=== PATIENT | female | born 1930 | race Caucasian/White ===

== ENCOUNTER 2018-03-23 19:14 | Inpatient (IN) | payer MEDICARE, OTHER ==
[~2018-03-23] VITALS: Ht 157.5 cm; Wt 85.7 kg
--- NOTE | 2018-03-23 19:30 | NUR ---
ADMITTED DIRECTLY FORM [facility], AN 87 YEAR OLD WOMAN ON 5150 HOLD FOR DTS/DTO. BROUGHT IN BY PARAMEDICS VIA GURNEY, PLACED IN BED COMFORTABLY. UPON FACE TO FACE, PATIENT STATED THAT SHE WANTED TO KILL HER FAMILY MEMBERS AND HANG HERSELF. PATIENT SHOWS NO S/S OF ANY PAIN, RESPIRATION EVEN, BREATHING PATTERN NON-LABORED, NO ACUTE DISTRESS NOTED. AWAKE, ALERT, ORIENTED X2-3, FORGETFUL DUE TO POOR MEMORY,HX OF DEMENTIA. AMBULATORY, STEADY GAIT. CALM, COOPERATIVE, PLEASANT, OBEYS INSTRUCTIONS. PATIENT IS APPROPRIATE, HAS POOR JUDGEMENT AND POOR INSIGHT. SKIN ASSESSMENT DONE, SKIN IS CLEAR. BELONGINGS WERE INVENTORIED AND CHECKED FOR CONTRABAND. MED RECON DONE BY STARCHER AND TENTER RANGE FEEDER SKYE DAWSON, HAS SEEN PATIENT. PATIENT IS UNDER THE CARE OF DR. CASTELLON. MRSA SCREEN DONE. DAUGHTER SHWETA CALLED AND WAS GIVEN AN UPDATE ABOUT PATIENT'S CURRENT CONDITION, AND SHE WILL VISIT JUDITH. 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 BED LOCKED AND PLACED ON LOWEST POSITION. WILL CONTINUE TO MONITOR Q 15 MINS. TO MAINTAIN SAFETY.
[2018-03-23 20:00] VITALS: BP 165/91
[2018-03-23] MEDS ORDERED: PANT40TA4 PO (20:01)
[2018-03-23] MEDS ORDERED: DOCU100C36 PO (20:01)
[2018-03-23] MEDS ORDERED: HYDR100T27 PO (20:01)
[2018-03-23] MEDS ORDERED: TRAM50TA2 PO (20:01)
[2018-03-23] MEDS ORDERED: CLON0.2T PO (20:01)
[2018-03-23] MEDS ORDERED: VALS160T2 PO (20:01)
--- NOTE | 2018-03-23 20:19 | NUR ---
CALLED FAMILY [phone], NO ANSWER, UNABLE TO LEAVE MESSAGE. CALLED MANINDER, DAUGHTER, , NON WORKING NUMBER. FOLLOW UP JUDITH SIMON
--- NOTE | 2018-03-23 20:28 | NUR ---
DAUGHTER, SHWETA CALLED, ASKED ABOUT HER MOTHER IN ROOM 261-1. PATIENT STABLE. PER DAUGHTER SHE IS DEAF BOTH EARS.
[2018-03-23] MEDS ORDERED: MAGNESIUM HYDROXIDE 30 ML UDC PO PRN (20:30)
[2018-03-23] MEDS ORDERED: MAG HYDROX/AL HYDROX/SIMETH 30 ML UDC PO PRN (20:30)
[2018-03-23] MEDS ORDERED: ZOLPIDEM TARTRATE 5 MG TABLET PO PRN (20:30)
[2018-03-23] MEDS ORDERED: TRAMADOL HCL 50 MG TABLET PO PRN (22:00)
[2018-03-23] MEDS: DOCUSATE SODIUM 100 MG CAPSULE PO SCH (22:07)
[2018-03-23] MEDS: VALSARTAN 80 MG TABLET PO SCH (22:07)
[2018-03-23] MEDS: hydrALAZINE HCL 50 MG TABLET PO SCH (22:07)
[2018-03-24] MEDS ORDERED: DULO30CA2 PO (01:59)
[2018-03-24] MEDS ORDERED: DONE5TAB34 PO (01:59)
[2018-03-24] MEDS ORDERED: FOLI1TAB84 PO (01:59)
[2018-03-24] MEDS ORDERED: LORA0.5T PO (01:59)
[2018-03-24] MEDS ORDERED: TOLT4CAP PO (01:59)
[2018-03-24] MEDS ORDERED: BACL10TA PO (01:59)
[2018-03-24] MEDS ORDERED: LINA290C PO (01:59)
[2018-03-24] MEDS ORDERED: TIMO5SOL11 EACHEYE (01:59)
[2018-03-24] MEDS ORDERED: OLME20TA13 PO (01:59)
[2018-03-24] MEDS ORDERED: PARO20TA7 PO (01:59)
[2018-03-24] MEDS ORDERED: ROSU20TA2 PO (01:59)
[2018-03-24] MEDS: hydrALAZINE HCL 50 MG TABLET PO SCH ×3 (07:28→21:22)
[2018-03-24 08:00] VITALS: BP 146/66
[2018-03-24 08:10] LABS: BASOPHILS % (AUTO) 0.5 % (0.0-2.0); EOSINOPHILS % (AUTO) 2.6 % (0.0-6.0); HEMATOCRIT 34 % (33-45); HEMOGLOBIN 11.5 g/dL (11.5-14.8); LYMPHOCYTES # (AUTO) 2.5 /CMM (0.8-4.8); LYMPHOCYTES % (AUTO) 44.9 % (20.0-44.0); MEAN CORPUSCULAR HGB CONC 34 g/dl (31.0-36.0); MEAN CORPUSCULAR VOLUME 98 fL (82-100); MONOCYTES # (AUTO) 0.6 /CMM (0.1-1.30); MONOCYTES % (AUTO) 11.5 % (2.0-12.0); NEUTROPHILS # (AUTO) 2.3 /CMM (1.8-8.9); NEUTROPHILS % (AUTO) 40.5 % (43.0-81.0); PLATELET COUNT (AUTO) 299 /CMM (150-450); RED BLOOD CELL COUNT(AUTO) 3.42 MIL/uL (4.0-5.2); WHITE BLOOD COUNT (AUTO) 5.7 K/uL (4.3-11.0)
[2018-03-24 08:28] LABS: ALANINE AMINOTRANSFERASE 17 U/L (12-78); ALBUMIN 3.1 g/dL (3.4-5.0); ALKALINE PHOSPHATASE 60 U/L (46-116); ASPARTATE AMINOTRANSFERASE 17 U/L (15-37); BILIRUBIN,TOTAL 0.7 mg/dL (0.2-1.0); CALCIUM, SERUM 8.9 mg/dL (8.5-10.1); CARBON DIOXIDE 27 mmol/L (21-32); CHLORIDE 109 mmol/L (98-107); CREATININE 0.8 mg/dL (0.6-1.3); GLUCOSE 97 mg/dL (74-106); SODIUM SERUM 145 mmol/L (136-145); TOTAL PROTEIN, SERUM 6.6 g/dL (6.4-8.2); UREA NITROGEN, BLOOD 17 mg/dL (7-18)
[2018-03-24 08:31] LABS: CHOLESTEROL 199 mg/dL (<200); HDL CHOLESTEROL 45 mg/dL (40-60); LDL 138 mg/dL (0-99); TRIGLYCERIDES 116 mg/dL (30-150)
[2018-03-24] MEDS: DOCUSATE SODIUM 100 MG CAPSULE PO SCH ×2 (09:33→16:17)
[2018-03-24] MEDS: VALSARTAN 80 MG TABLET PO SCH ×2 (09:33→21:21)
[2018-03-24] MEDS: PANTOPRAZOLE 40 MG TABLET.DR PO SCH (09:33)
--- NOTE | 2018-03-24 11:53 | NUR ---
SW called the pt's daughter, Christina ([phone]), and left a message on her voicemail stating that the SW would like to discuss the pt's initial discharge plan.
--- NOTE | 2018-03-24 11:54 | NUR ---
PEDRO called the pt's granddaughter, Laurel ([phone]), and went over the psychosocial assessment with her and discussed the initial discharge plan as well. She stated that she will speak to her mother and discuss it further but as of right now she is the caregiver for the pt and believes that the pt will benefit from being home.
[2018-03-24] MEDS: DIVALPROEX SODIUM 250 MG TABLET.DR PO SCH ×2 (12:19→21:24)
--- NOTE | 2018-03-24 15:34 | NUR ---
Christina ([phone]), pt's daughter, called the SW back and stated that she does not think that the pt can return to her home and continue to live alone. SW went through the options with her such as shelter facility, assisted living, getting a 24/7 kitchen clerk to be present in the home, etc.
--- NOTE | 2018-03-24 15:34 | NUR ---
Initial Discharge Plan: Pt currently resides at her home alone located at [address] [place] [address]; ([phone]). Pt has a laboratory analyst, Laurel ([phone]), who is also her granddaughter. Per pt. she would like to return home. SW will work with the pt and the MD regarding appropriate discharge planning. SW will form a safe and proper discharge plan.
[2018-03-24 16:00] VITALS: BP 146/85
--- NOTE | 2018-03-24 18:56 | NUR ---
RN-CO: Called Dr Vann's office for consult, left a message.
[2018-03-24 20:00] VITALS: BP 148/89
[2018-03-24] MEDS: DONEPEZIL 5 MG TABLET PO SCH (21:22)
[2018-03-24] MEDS: QUETIAPINE FUMARATE 25 MG TABLET PO SCH (21:23)
[2018-03-25] MEDS: hydrALAZINE HCL 50 MG TABLET PO SCH ×3 (06:26→22:34)
[2018-03-25 08:00] VITALS: BP 126/75
[2018-03-25] MEDS: DOCUSATE SODIUM 100 MG CAPSULE PO SCH ×2 (09:00→17:08)
[2018-03-25] MEDS: DIVALPROEX SODIUM 250 MG TABLET.DR PO SCH ×2 (09:00→20:47)
[2018-03-25] MEDS: PANTOPRAZOLE 40 MG TABLET.DR PO SCH (09:00)
[2018-03-25] MEDS: PAROXETINE HCL 10 MG TABLET PO SCH (09:01)
[2018-03-25] MEDS: VALSARTAN 80 MG TABLET PO SCH ×2 (09:01→20:46)
[2018-03-25 16:00] VITALS: BP 142/64
[2018-03-25 18:39] LABS: APPEARANCE,URINE CLEAR (CLEAR); BILIRUBIN,URINE NEGATIVE (NEGATIVE); BLOOD, URINE NEGATIVE Ery/uL (NEGATIVE); COLOR,URINE YELLOW (YELLOW); KETONES,URINE TRACE (NEGATIVE); LEUKOCYTE ESTERASE ,URINE 1+ (NEGATIVE); NITRITE, URINE NEGATIVE (NEGATIVE); PROTEIN,URINE NEGATIVE (NEGATIVE); UGLUCOSE NEGATIVE (NEGATIVE); UROBILINOGEN,URINE 0.2 EU/dL (0.2)
[2018-03-25 19:12] LABS: BACTERIA,URINE 1+ /HPF (None Seen); RBC,URINE 0-2 /HPF (0-2)
[2018-03-25 20:00] VITALS: BP 104/71
[2018-03-25] MEDS: QUETIAPINE FUMARATE 25 MG TABLET PO SCH (22:29)
[2018-03-25] MEDS: DONEPEZIL 5 MG TABLET PO SCH (22:29)
[2018-03-26] MEDS: hydrALAZINE HCL 50 MG TABLET PO SCH ×3 (06:20→21:57)
[2018-03-26 08:00] VITALS: BP 137/72
[2018-03-26] MEDS: PAROXETINE HCL 10 MG TABLET PO SCH (08:58)
[2018-03-26] MEDS: DOCUSATE SODIUM 100 MG CAPSULE PO SCH ×2 (09:02→16:36)
[2018-03-26] MEDS: PANTOPRAZOLE 40 MG TABLET.DR PO SCH (09:02)
[2018-03-26] MEDS: DIVALPROEX SODIUM 250 MG TABLET.DR PO SCH ×2 (09:02→21:58)
[2018-03-26] MEDS: VALSARTAN 80 MG TABLET PO SCH ×2 (09:02→21:57)
[2018-03-26 16:24] VITALS: BP 125/95
[2018-03-26 19:00] VITALS: BP 142/61
[2018-03-26 20:19] VITALS: BP 142/61
[2018-03-26] MEDS: QUETIAPINE FUMARATE 25 MG TABLET PO SCH (21:57)
[2018-03-26] MEDS: DONEPEZIL 5 MG TABLET PO SCH (21:58)
--- NOTE | 2018-03-26 22:16 | NUR ---
rn notes patient noted to be anxious, and complaining of headache. ultram and ativan given with relief and help.
[2018-03-26] MEDS: LORAZEPAM 0.5 MG TABLET PO PRN (22:44)
[2018-03-27] MEDS: hydrALAZINE HCL 50 MG TABLET PO SCH ×3 (05:23→22:13)
[2018-03-27 08:00] VITALS: BP 97/53
[2018-03-27] MEDS: VALSARTAN 80 MG TABLET PO SCH ×2 (09:00→22:11)
[2018-03-27] MEDS: PANTOPRAZOLE 40 MG TABLET.DR PO SCH (09:59)
[2018-03-27] MEDS: DIVALPROEX SODIUM 250 MG TABLET.DR PO SCH ×2 (09:59→22:11)
[2018-03-27] MEDS: DOCUSATE SODIUM 100 MG CAPSULE PO SCH ×2 (10:00→17:15)
[2018-03-27] MEDS: PAROXETINE HCL 10 MG TABLET PO SCH (10:00)
--- NOTE | 2018-03-27 11:35 | NUR ---
SW called the pt's granddaughter, Laurel ([phone]), and discussed the discharge plan with her because she had stated that she would discuss it with her mother over the weekend. She stated that they are going to look into a new apartment for her and that her layer off (pt's granddaughter) will be with her. They stated that if they cannot find a [address] 8 apartment in time, then they would accept placement in a facility.
--- NOTE | 2018-03-27 13:55 | NUR ---
RN NOTE: PATIENT BP IS 91/48, 88 PULSE. PATIENT ALERT AND ORIENTED X3, THOUGHT PROCESS INTACT. WILL CONT TO MONITOR PATIENT.
[2018-03-27 16:00] VITALS: BP 119/81
[2018-03-27] MEDS: ACETAMINOPHEN 325 MG TABLET PO PRN (17:15)
[2018-03-27 20:00] VITALS: BP 132/73
[2018-03-27] MEDS: QUETIAPINE FUMARATE 25 MG TABLET PO SCH (22:12)
[2018-03-27] MEDS: DONEPEZIL 5 MG TABLET PO SCH (22:12)
--- NOTE | 2018-03-28 05:58 | NUR ---
PATIENT IS ALERT ORIENTED X 3 GIBRALTARIAN SPEAKING ONLY DENIES ANY PAIN OR DISCOMFORT AT THIS TIME, ADULT PROTECTIVE SERVICES (APS) AFTER HOURS UNIT A TIM FILE #0022 IT SENIOR SOFTWARE ENGINEER JAVA COME TO INTERVIEW THE PATIENT AND GIVE THE IT SENIOR SOFTWARE ENGINEER JAVA NUMBER OF SERGIO VIKAS, [id number] FOLLOW UP IN THE MORNING
[2018-03-28] MEDS: hydrALAZINE HCL 50 MG TABLET PO SCH ×3 (06:00→21:26)
[2018-03-28 08:00] VITALS: BP 138/63
--- NOTE | 2018-03-28 08:00 | NUR ---
RN NOTES RECEIVED PT ON BED, CITIZEN OF [place] SPEAKING , NO DISTRESS NOTED, CONTINUE TO MONITOR.
--- NOTE | 2018-03-28 08:23 | NUR ---
SW returned the call of Christina ([phone]), pt's daughter, and left a voicemail for her stating the SW's hours and that she would answer any questions she has to the best of her ability whenever she calls back with them.
[2018-03-28] MEDS: PAROXETINE HCL 10 MG TABLET PO SCH (08:57)
[2018-03-28] MEDS: DOCUSATE SODIUM 100 MG CAPSULE PO SCH ×2 (08:57→16:34)
[2018-03-28] MEDS: VALSARTAN 80 MG TABLET PO SCH ×2 (08:57→20:44)
[2018-03-28] MEDS: PANTOPRAZOLE 40 MG TABLET.DR PO SCH (08:57)
[2018-03-28] MEDS: DIVALPROEX SODIUM 250 MG TABLET.DR PO SCH ×2 (08:58→20:43)
--- NOTE | 2018-03-28 13:39 | NUR ---
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 APS Turkey Egg Gatherer stated that a different SW within this region came to see the pt and stated that the pt cannot return to her home. SW stated that the current plan is to send the pt to a assisted facility.
[2018-03-28 16:00] VITALS: BP 119/79
--- NOTE | 2018-03-28 16:23 | NUR ---
Christina ([phone]), pt's daughter, called the SW and the discharge was discussed. The SW informed her that there is an open case on the pt and an [facility] Blast Furnace Helper stated that the pt cannot return home and therefore she needs placement. The SW stated that there is a facility in [place] with many Hungarian speaking staff members that would be beneficial for the pt. She stated that she would like a referral to be sent there.
--- NOTE | 2018-03-28 16:25 | NUR ---
Lucrecia Mendes ([phone]), APS Health Communications Specialist, called the SW and stated that she would like an update regarding the pt's discharge when it is available.
--- NOTE | 2018-03-28 18:30 | NUR ---
RN NOTES PT REMANS STABLE , SITTING UP ON A CHAIR , NO SIGNIFICANT CHANGES NOTED ON THIS SHIFT.
[2018-03-28 20:50] VITALS: BP 138/71
[2018-03-28] MEDS: DONEPEZIL 5 MG TABLET PO SCH (21:26)
[2018-03-28] MEDS: QUETIAPINE FUMARATE 25 MG TABLET PO SCH (21:26)
[2018-03-29] MEDS: hydrALAZINE HCL 50 MG TABLET PO SCH ×3 (06:04→21:41)
[2018-03-29 08:00] VITALS: BP 100/54
[2018-03-29] MEDS: DOCUSATE SODIUM 100 MG CAPSULE PO SCH ×2 (08:50→17:09)
[2018-03-29] MEDS: DIVALPROEX SODIUM 250 MG TABLET.DR PO SCH ×2 (08:50→21:05)
[2018-03-29] MEDS: PAROXETINE HCL 10 MG TABLET PO SCH (08:50)
[2018-03-29] MEDS: PANTOPRAZOLE 40 MG TABLET.DR PO SCH (08:50)
[2018-03-29] MEDS: VALSARTAN 80 MG TABLET PO SCH ×2 (08:51→21:06)
--- NOTE | 2018-03-29 14:06 | NUR ---
PEDRO faxed a referral to [facility] with attention to Pippa to the fax number: [phone]. PEDRO will follow up with the referral.
--- NOTE | 2018-03-29 14:07 | NUR ---
Pippa ([phone]), community marketing coordinator from [facility], contacted the and stated that the pt was accepted to their facility.
[2018-03-29 16:00] VITALS: BP 147/78
[2018-03-29 19:57] VITALS: BP 111/60
[2018-03-29] MEDS: QUETIAPINE FUMARATE 25 MG TABLET PO SCH (21:09)
[2018-03-29] MEDS: DONEPEZIL 5 MG TABLET PO SCH (21:09)
[2018-03-30] MEDS: hydrALAZINE HCL 50 MG TABLET PO SCH ×3 (05:46→20:54)
[2018-03-30 08:00] VITALS: BP 101/56
[2018-03-30] MEDS: VALSARTAN 80 MG TABLET PO SCH ×2 (08:11→20:54)
[2018-03-30] MEDS: PAROXETINE HCL 10 MG TABLET PO SCH (08:11)
[2018-03-30] MEDS: DIVALPROEX SODIUM 250 MG TABLET.DR PO SCH ×2 (08:11→20:54)
[2018-03-30] MEDS: PANTOPRAZOLE 40 MG TABLET.DR PO SCH (08:11)
[2018-03-30] MEDS: DOCUSATE SODIUM 100 MG CAPSULE PO SCH ×2 (08:11→16:50)
--- NOTE | 2018-03-30 12:07 | NUR ---
PEDRO called Christina ([phone]), pt's daughter, and informed her that the pt was accepted to [facility] and that the psychiatrist would like the pt to be discharged on Tuesday. PEDRO informed her to call back to state whether or not this is an acceptable discharge plan.
--- NOTE | 2018-03-30 13:46 | NUR ---
SW called the pt's granddaughter, Laurel ([phone]), and informed her that the pt was accepted to [facility] and that is the recommended discharge plan. PEDRO stated that the psychiatrist will be discharging the pt on Tuesday so the SW needs a discharge confirmation location by tomorrow.
[2018-03-30 16:00] VITALS: BP 123/71
--- NOTE | 2018-03-30 16:08 | NUR ---
Christina ([phone]), pt's daughter, called the and stated that she accepts the discharge plan of having the pt be discharged to [facility].
[2018-03-30 20:00] VITALS: BP 129/59
[2018-03-30] MEDS: DONEPEZIL 5 MG TABLET PO SCH (20:56)
[2018-03-30] MEDS: QUETIAPINE FUMARATE 25 MG TABLET PO SCH (20:56)
[2018-03-31] MEDS: hydrALAZINE HCL 50 MG TABLET PO SCH ×3 (06:14→21:42)
--- NOTE | 2018-03-31 06:15 | NUR ---
VITALS NOW 120/64, PULSE 60.
[2018-03-31 06:16] VITALS: BP 120/64
[2018-03-31 08:00] VITALS: BP 146/68
[2018-03-31] MEDS: PAROXETINE HCL 10 MG TABLET PO SCH (08:51)
[2018-03-31] MEDS: DOCUSATE SODIUM 100 MG CAPSULE PO SCH ×2 (08:51→16:40)
[2018-03-31] MEDS: DIVALPROEX SODIUM 250 MG TABLET.DR PO SCH ×2 (08:51→21:42)
[2018-03-31] MEDS: VALSARTAN 80 MG TABLET PO SCH ×2 (08:51→21:43)
[2018-03-31] MEDS: PANTOPRAZOLE 40 MG TABLET.DR PO SCH (08:51)
[2018-03-31] MEDS: ACETAMINOPHEN 325 MG TABLET PO PRN (08:57)
--- NOTE | 2018-03-31 09:00 | NUR ---
GPS/RN-NOTES PATIENT REQUESTING TYLENOL FOR HEADACHE. TYLENOL 650MG P.O GIVEN PRN ORDER. ALSO PATIENT C/O OF CONSTIPATION. MOM 30ML GIVEN PRN ORDER. WILL CONT. MONITORING.
--- NOTE | 2018-03-31 11:10 | NUR ---
PEDRO called the pt's granddaughter, Laurel ([phone]), and attempted to leave a voicemail confirming the pt's discharge but the mailbox was full.
--- NOTE | 2018-03-31 11:21 | NUR ---
SW received a call from [facility] ([phone]) and confirmed that the pt will be discharging there the following day at 12pm.
--- NOTE | 2018-03-31 11:43 | NUR ---
PEDRO called Lucrecia Mendes ([phone]), APS Coupon Manifest Clerk, and left a message on her voicemail stating that the pt will be discharged tomorrow and will be going to [facility] instead of returning home.
[2018-03-31 16:00] VITALS: BP 125/63
[2018-03-31 20:00] VITALS: BP 124/60
[2018-03-31] MEDS: QUETIAPINE FUMARATE 25 MG TABLET PO SCH (21:42)
[2018-03-31] MEDS: DONEPEZIL 5 MG TABLET PO SCH (21:42)
[2018-03-31] MEDS: LORAZEPAM 0.5 MG TABLET PO PRN (23:05)
[2018-04-01] MEDS: hydrALAZINE HCL 50 MG TABLET PO SCH (06:00)
[2018-04-01 08:00] VITALS: BP 102/59
[2018-04-01 08:15] VITALS: BP 102/59
[2018-04-01] MEDS: DOCUSATE SODIUM 100 MG CAPSULE PO SCH (08:15)
[2018-04-01] MEDS: PAROXETINE HCL 10 MG TABLET PO SCH (08:15)
[2018-04-01] MEDS: PANTOPRAZOLE 40 MG TABLET.DR PO SCH (08:15)
[2018-04-01] MEDS: DIVALPROEX SODIUM 250 MG TABLET.DR PO SCH (08:15)
[2018-04-01] MEDS: VALSARTAN 80 MG TABLET PO SCH (08:15)
--- NOTE | 2018-04-01 09:24 | NUR ---
DR. CASTELLON GAVE AN ORDER TO D/C HOLD AND D/C TO [facility], TO CONTINUE SAME MEDS INCLUDING PRN AND TO FOLLOW UP WITH PSYCH AND MEDICAL DOCTORS.
--- NOTE | 2018-04-01 09:31 | NUR ---
SPOKE TO PRISCA MANAGER CONSTRUCTION OF [facility] AND SAID THEY WILL ACCEPT HER TODAY AND DAUGHTER SHWETA MADE AWARE OF THE DISCHARGE WITH THE TELEPHONE # [phone].
--- NOTE | 2018-04-01 13:17 | NUR ---
GPS PRECINCT POLICE LIEUTENANT NOTE: PT DISCHARGE TO [facility] AT [address] [address] [address] T.O[address] ORDER FROM DR RAVINDER RAMIREZ HOLD DC TP TO SNF, ORDER PLACED. PT IN STABLE CONDITION NO S/S DISTRESS NOTED , PT DENIES SI/HI, COMPLIANT WITH MEDICATIONS, VSS, SKIN INTACT.EXIT CARE DONE, PRINTED GIVEN TO PT. PT AMBULATORY A/OX2,FILIPINO SPEAKER. ALL BELONGINGS RETURNED TO PT. PT DAUGHTER NOTIFIED OF DISCHARGE.
--- NOTE | 2018-04-03 16:29 | NUR ---
Discharge Note: Pt was discharged to [facility] ([facility]) located at [address] [place] [address]; ([phone]). Pt was transported via [facility] (Trip #[id number]) at 12pm. Pts daughter, Christina ([phone]), was notified of this discharge. Upon discharge, the pt had informed the nurses that the pt denied both suicidal and homicidal ideation as well as auditory and visual hallucinations. Pt will be under the care of her psychiatrist, Dr. Scruggs, located at [address] [address], [place] [address]; and her castables worker, Dr. Roldan, located at [address], [place] [address]; .
== END 2018-04-01 13:48 | DRG 885 ==
LOC: GPS 19:14
PROVIDERS: ADMIT Psychiatry & Neurology Psychiatry; ATTEND Psychiatry & Neurology Psychiatry
DX: F31.2 Bipolar disorder, current episode manic severe with psychotic features (principal); E44.1 Mild protein-calorie malnutrition; D68.59 Other primary thrombophilia; F03.91 Unspecified dementia, unspecified severity, with behavioral disturbance; F29 Unspecified psychosis not due to a substance or known physiological condition; E66.01 Morbid (severe) obesity due to excess calories; F03.90 Unspecified dementia, unspecified severity, without behavioral disturbance, psychotic disturbance, mood disturbance, and anxiety; K21.9 Gastro-esophageal reflux disease without esophagitis; I10 Essential (primary) hypertension; E87.6 Hypokalemia; Z79.899 Other long term (current) drug therapy; E88.09 Other disorders of plasma-protein metabolism, not elsewhere classified; Z68.34 Body mass index [BMI] 34.0-34.9, adult
CPT/HCPCS: 36415; 70450-TC; 71045-TC; 80053-TC; 80061-TC; 80164-TC; 80305; 81000-TC; 84443-TC; 85025-TC; 87081-TC; 87086-TC

== ENCOUNTER 2018-11-09 11:45 | Inpatient (IN) | payer MEDICARE, OTHER ==
[~2018-11-09] VITALS: Ht 162.6 cm; Wt 59.0 kg
--- NOTE | 2018-11-09 07:30 | NUR ---
MEHNAZ RN OPENING NOTE RECEIVED PATIENT A/O X1. PATIENT IS IN NO SIGN OF ANY DISTRESS. PATIENT IS ON ROOM AIR WITH NO SOB. PATIENT HAS A RAC #18g WITH NS RUNNING AT 75LM/HR PATENT AND FLUSHING WELL, SHE ALSO HAS A LAC SALINE LOCK #18G PATENT AT FLUSHING WELL. PATIENT IS ABLE TO FOLLOW SMALL COMMANDS. SKIN IN INTACT AND IS ABLE TO MOVE AND CONTROL EXTREMITIES. PATIENT HAS RIVERA PATENT WITH SIGNS OF HEMATURIA BUT SIGNS OF DISTRESS. PATIENT SHOWS SLIGHT CONFUSION WILL CONTINUE TO MONITOR PATIENT Addendum: 11/10/18 at 0651 by BURKE WAGNER RN TIME OF NOTE INCORRECT. TIME IS FOR 19:30
[~2018-11-09 11:45] MED LIST: BACL10TA PO; CLON0.2T PO; DOCU100C36 PO; DONE5TAB34 PO; DULO30CA2 PO; FOLI1TAB84 PO; HYDR100T27 PO; LINA290C PO; OLME20TA13 PO; PANT40TA4 PO; ROSU20TA2 PO; TIMO5SOL11 EACHEYE; TOLT4CAP PO; TRAM50TA2 PO; VALS160T2 PO
--- NOTE | 2018-11-09 12:04 | NUR ---
DR RAMIREZ AT BEDSIDE, CODE STROKE ACTIVATED AT 1201. NIHSS COMPLETED = 26. FAILED SWALLOW EVAL D/T ALOC.
--- NOTE | 2018-11-09 12:09 | NUR ---
CALLED TELE STROKE HOTLINE
[2018-11-09 12:18] LABS: BASOPHILS # (AUTO) 0.1 /CMM (0.0-0.2); BASOPHILS % (AUTO) 0.9 % (0.0-2.0); EOSINOPHILS % (AUTO) 0.9 % (0.0-6.0); HEMATOCRIT 34 % (33-45); HEMOGLOBIN 11.3 g/dL (11.5-14.8); LYMPHOCYTES # (AUTO) 3.4 /CMM (0.8-4.8); LYMPHOCYTES % (AUTO) 48.3 % (20.0-44.0); MEAN CORPUSCULAR HGB CONC 33 g/dl (31.0-36.0); MEAN CORPUSCULAR VOLUME 101 fL (82-100); MONOCYTES # (AUTO) 0.7 /CMM (0.1-1.30); MONOCYTES % (AUTO) 9.6 % (2.0-12.0); NEUTROPHILS # (AUTO) 2.8 /CMM (1.8-8.9); NEUTROPHILS % (AUTO) 40.3 % (43.0-81.0); PLATELET COUNT (AUTO) 261 /CMM (150-450); RED BLOOD CELL COUNT(AUTO) 3.35 MIL/uL (4.0-5.2)
--- NOTE | 2018-11-09 12:20 | NUR ---
1219: RADIOLOGIST SPEAKING TO DR RAMIREZ
[2018-11-09 12:23] LABS: CARBON DIOXIDE 26 mmol/L (21-32); CHLORIDE 105 mmol/L (98-107); POTASSIUM 3.5 mmol/L (3.5-5.1); SODIUM SERUM 139 mmol/L (136-145)
[2018-11-09 12:25] LABS: CALCIUM, SERUM 8.3 mg/dL (8.5-10.1); GLUCOSE 105 mg/dL (74-106); UREA NITROGEN, BLOOD 14 mg/dL (7-18)
[2018-11-09 12:30] LABS: ALANINE AMINOTRANSFERASE 11 U/L (12-78); ALBUMIN 3.2 g/dL (3.4-5.0); ALKALINE PHOSPHATASE 49 U/L (46-116); ASPARTATE AMINOTRANSFERASE 14 U/L (15-37); BILIRUBIN,DIRECT 0.1 mg/dL (0.0-0.2); BILIRUBIN,TOTAL 0.4 mg/dL (0.2-1.0); TOTAL PROTEIN, SERUM 6.7 g/dL (6.4-8.2)
--- NOTE | 2018-11-09 12:34 | NUR ---
TALKED TO SHWETA PT DAUGHTER [phone]
[2018-11-09] MEDS ORDERED: ZOLP5TAB8 PO (12:41)
[2018-11-09] MEDS ORDERED: LANS30CA54 PO (12:41)
[2018-11-09] MEDS ORDERED: METO-356 PO (12:41)
[2018-11-09] MEDS ORDERED: MOME17SP (12:41)
[2018-11-09] MEDS ORDERED: TOLT4CAP PO (12:41)
[2018-11-09] MEDS ORDERED: AMLO10TA4 PO (12:41)
[2018-11-09] MEDS ORDERED: HYDR-500 PO (12:41)
[2018-11-09 12:42] LABS: CHOLESTEROL 210 mg/dL (<200); HDL CHOLESTEROL 34 mg/dL (40-60); LDL 136 mg/dL (0-99); TRIGLYCERIDES 159 mg/dL (30-150)
--- NOTE | 2018-11-09 12:55 | NUR ---
CALLED FOR MEHNAZ BED, TURNED IN MOVE SHEET
--- NOTE | 2018-11-09 13:15 | NUR ---
PAGED LIVAN MERCHANT
--- NOTE | 2018-11-09 13:22 | NUR ---
MEHNAZ BED 112-1
[2018-11-09 13:41] LABS: ABG BASE EXCESS -2.7 mmol/L; ABG OXYGEN SATURATION 96.5 % (92.0-98.5); ABG PCO2 37.9 mmHg (35.0-45.0); ABG PH 7.381 (7.350-7.450); ABG PO2 89.8 mmHg (75.0-100.0); AaDO2 14.5 mmHg; COHb 0.5 % (0.5-1.5); MetHb 0.3 % (0.0-1.5); O2Hb 95.7 % (94.0-97.0); SITE, ABG Left Radial; VENT MODE, BG ROOM AIR
--- NOTE | 2018-11-09 13:41 | NUR ---
REPORT GIVEN TO CHASITY JACOBO
[2018-11-09] MEDS ORDERED: ASPIRIN 300 MG/SUPP.RECT RC ONE (13:44)
[2018-11-09 13:57] LABS: APPEARANCE,URINE Clear (CLEAR); BILIRUBIN,URINE Negative (NEGATIVE); BLOOD, URINE Negative Ery/uL (NEGATIVE); COLOR,URINE Yellow (YELLOW); KETONES,URINE Negative (NEGATIVE); LEUKOCYTE ESTERASE ,URINE Negative (NEGATIVE); NITRITE, URINE Negative (NEGATIVE); PROTEIN,URINE Negative (NEGATIVE); UGLUCOSE Negative (NEGATIVE); UROBILINOGEN,URINE 0.2 EU/dL (0.2)
[2018-11-09 14:00] VITALS: BP 95/72
[2018-11-09] MEDS ORDERED: ASPIRIN 300 MG/SUPP.RECT RC SCH (14:00)
--- NOTE | 2018-11-09 14:00 | NUR ---
received pt from ER, s/p AMS, pt is alters, non verbal, opens eyes but does not follow commands, SB, RA sat well, BL foot non pitting edema, NPO, f/c some good output, no BM, skin intact, pt cleaned, changed and repositioned, v/s stable, no pain, Dr. Roy at the bedside,
--- NOTE | 2018-11-09 14:02 | NUR ---
TRANSPORTED TO [facility] RM 111-2 IN GUARDED CONDITION
[2018-11-09] MEDS ORDERED: Z GUARD REMEDY 2 OZ OINT TP PRN (14:30)
[2018-11-09] MEDS ORDERED: ONDANSETRON HCL/PF 4 MG/2 ML VIAL IVP PRN (14:30)
[2018-11-09] MEDS: IV NS 0.9% 1,000 ML IV PRN (15:19)
[2018-11-09 16:00] VITALS: BP 125/55
--- NOTE | 2018-11-09 16:18 | NUR ---
pt is resting in the bed, drowsy, opens eyes, does not follow commands, v/s stable, no pain, pt cleaned, changed and repositioned.
[2018-11-09] MEDS ORDERED: MOMETASONE FUROATE NASAL SUSP 17 GM BOTTLE SCH (17:00)
[2018-11-09 20:00] VITALS: BP 148/69
[2018-11-09 20:20] VITALS: BP 148/69
[2018-11-09] MEDS: ENOXAPARIN SODIUM 40 MG/0.4 ML DISP.SYRIN SQ SCH (20:53)
[2018-11-10] VITALS: BP 159/74
[2018-11-10] MEDS: hydrALAZINE HCL IV 20 MG VIAL IV PRN ×2 (03:33→20:22)
[2018-11-10 04:00] VITALS: BP_SYST 161; BP_SYST 177; BP_DIAS 73; BP_DIAS 74
[2018-11-10] MEDS: IV NS 0.9% 1,000 ML IV PRN ×2 (04:47→20:36)
[2018-11-10 06:45] LABS: BASOPHILS % (AUTO) 0.8 % (0.0-2.0); EOSINOPHILS % (AUTO) 1.1 % (0.0-6.0); HEMATOCRIT 39 % (33-45); HEMOGLOBIN 12.8 g/dL (11.5-14.8); LYMPHOCYTES # (AUTO) 2.4 /CMM (0.8-4.8); MEAN CORPUSCULAR HGB CONC 33 g/dl (31.0-36.0); MEAN CORPUSCULAR VOLUME 101 fL (82-100); MONOCYTES # (AUTO) 0.7 /CMM (0.1-1.30); MONOCYTES % (AUTO) 9.9 % (2.0-12.0); NEUTROPHILS # (AUTO) 3.4 /CMM (1.8-8.9); NEUTROPHILS % (AUTO) 52.2 % (43.0-81.0); PLATELET COUNT (AUTO) 247 /CMM (150-450); RED BLOOD CELL COUNT(AUTO) 3.84 MIL/uL (4.0-5.2); WHITE BLOOD COUNT (AUTO) 6.6 K/uL (4.3-11.0)
[2018-11-10 07:07] LABS: ALBUMIN 3.1 g/dL (3.4-5.0); BILIRUBIN,TOTAL 0.6 mg/dL (0.2-1.0); CALCIUM, SERUM 8.3 mg/dL (8.5-10.1); CREATININE 0.7 mg/dL (0.6-1.3); MAGNESIUM 1.7 mg/dL (1.8-2.4); PHOSPHORUS 3.7 mg/dL (2.5-4.9); POTASSIUM 3.5 mmol/L (3.5-5.1); TOTAL PROTEIN, SERUM 6.8 g/dL (6.4-8.2)
--- NOTE | 2018-11-10 07:28 | NUR ---
OILER BANDER OPENING NOTE PATIENT IN BED STABLE AND RESTING A/O X1. PATIENT HAS NO SIGNS OF SOB OR ANY DISTRESS. ALL SAFETY PRECAUTIONS ARE APPLIED. ENDORSED PATIENT TO AM NURSE.
--- NOTE | 2018-11-10 07:30 | NUR ---
MEHNAZ/RN OPENING NOTES PATIENT IN BED SLEEPING COMFORTABLY. EASILY AROUSABLE. GHANAIAN SPEAKING. PATIENT ABLE TO MAKE NEEDS KNOWN. NO PAIN OR ACUTE DISTRESS AT THIS TIME. RESPIRATION EVEN AND UNLABORED. SKIN IS DRY WARM TO TOUCH. PATIENT NOTED WITH IV ACCESS ON LEFT AND RIGHT AC. INTACT AND PATENT. FLUSHING WELL. NO S/S OF INFECTION OR INFILTRATION. ALL NEEDS ANTICIPATED. CALL LIGHT WITHIN REACHED. BED LOCKED AND IN LOWEST POSITION. SAFETY MAINTAINED. PLAN OF CARE DISCUSSED. WILL CONTINUE TO MONITOR CLOSELY.
[2018-11-10 07:53] LABS: THYROID STIMULATING HORMONE 1.005 uIU/mL (0.358-3.74)
[2018-11-10 08:00] VITALS: BP 171/69
[2018-11-10] MEDS: DULOXETINE HCL 30 MG CAPSULE.DR PO SCH (08:20)
[2018-11-10] MEDS: FLUTICASONE PROPIONATE 16 GM BOTTLE NS SCH (08:20)
[2018-11-10] MEDS: DONEPEZIL 5 MG TABLET PO SCH (08:20)
[2018-11-10] MEDS: TOLTERODINE 2 MG CAP.SR PO SCH (08:22)
[2018-11-10] MEDS: METOPROLOL SUCCINATE 25 MG TAB.SR.24H PO SCH (08:22)
[2018-11-10] MEDS: AMLODIPINE BESYLATE 10 MG TABLET PO SCH (08:22)
[2018-11-10] MEDS: Magnesium 1GM/D5W 100ML PREMIX 100 ML IV SCH ×2 (10:00→11:52)
[2018-11-10] MEDS: ACETAMINOPHEN 325 MG TABLET PO PRN ×2 (10:07→20:21)
[2018-11-10 16:00] VITALS: BP_SYST 108; BP_SYST 111; BP_DIAS 64; BP_DIAS 65
--- NOTE | 2018-11-10 17:53 | NUR ---
MS/RN NOTES PAGED DR. MERCHANT THRU EPIC LINE. AWAITING FOR CALL BACK REGARDING PATIENT BEING CONSTIPATED. ACCORDING TO PATIENT SHE HAS NOT HAVE A BOWEL MOVEMENT IN 3-4 DAYS. PATIENT CONTINUES TO REMAIN IN STABLE CONDITION. WILL CONTINUE TO MONITOR CLOSELY.
--- NOTE | 2018-11-10 19:15 | NUR ---
RN NOTES: RECEIVED AWAKE ON BED, DAUGHTER PRESENT AT BED SIDE, A/OX1-2, ALBANIAN SPEAKING, ABLE TO SAY FEW CZECH WORDS, DAUGHTER WAS CONCERN REGARDING PATIENT UNABLE TO PASS STOOL, PER RN THEY ARE AWAITING FOR RETURN CALL FROM .WILL F/U. ORIENTED TO UNIT AND STAFF, BED LOW AND LOCKED, CALL LIGHT WITHIN EASY REACH, FALL,SAFETY AND ASPIRATION PRECAUTION OBSERVED.
--- NOTE | 2018-11-10 19:23 | NUR ---
MS/RN CLOSING NOTES PATIENT CONTINUES TO REMAIN IN STABLE CONDITION THROUGHOUT THE SHIFT. PROVIDED COMFORT AND SAFETY. ENDORSED TO PM SHIFT REGARDING PATIENT FEELING CONSTIPATED. STILL WAITING FOR DR. MERCHANT'S CALL BACK AFTER BEING PAGED. PATIENT NOTED WITH IV ACCESS ON LEFT AND RIGHT AC. INTACT AND PATENT. FLUSHING WELL. NO S/S OF INFECTION OR INFILTRATION. ALL NEEDS ANTICIPATED. CALL LIGHT WITHIN REACHED. BED LOCKED AND IN LOWEST POSITION. SAFETY MAINTAINED. WILL CONTINUE TO MONITOR CLOSELY. ENDORSED TO PM SHIFT FOR SUSY.
[2018-11-10 20:00] VITALS: BP 161/76
--- NOTE | 2018-11-10 20:00 | NUR ---
RN NOTES 1999 DAUGHTER AT BEDSIDE WITH CONCERNS ABOUT CONSTIPATION; BLOOD PRESSURE; IV SITE; HEADACHE. MD WAS PAGED ENDORSED BUT PAGED AGAIN AT THIS TIME; AWAITING FOR CALL BACK FOR MD SOFTWARE PROJECT ENGINEER. OFFERED PRUNE JUICE FOR NOW WHILE WAITING FOR CALL BACK; AGREED TO TAKE WARM PRUNE JUICE; EXPLAINED TO DAUGHTER THAT PRN BP MED IS FOR ABOVE 170 SBP BUT WILL ADDRESS THAT WHEN MD CALLS BACK. PRIMARY RN, PERCY WILL CHANGE IV SITE DRESSING AND WILL ADDRESS HEADACHE; ICE PACK GIVEN PER REQUEST.
[2018-11-10] MEDS ORDERED: BISACODYL SUPP (10 MG) 10 MG/SUPP.RECT SUPP.RECT RC PRN (20:30)
--- NOTE | 2018-11-10 20:39 | NUR ---
RN NOTES: AROUND 2019 CALLED BACK, NOTIFIED PATIENT IS CONSTIPATED, WE REQUEST FOR LAXATIVE AND NOTIFIED PATIENT IS HAVING HEACHACHE BP-161/76, SHE IS ON APRSOLINE PRN FOR SBP.170, WTH NEW ORDERS: 1)MOM 30 ML q8h PRN FOR CONSTIPATION 2)DULCOLAX SUPP 10 MG q DAILY PRN IF ORAL LAXATIVE IS INEFFECTIVE 3)PARAMETER FOR APRESOLINE CHANGE FROM SBP>170 TO SBP.160 - ALL ORDERS NOTED AND CARRIED OUT. - AT 2020 TYLENOL 650MG PRN FOR PAIN GIVEN AND NON PHARMACOLOGIC INTERVENTION RENDERED. - BP161/76 APRESOLINE 10MG/0.5ML GIVEN WHILE DAUGHTER IS PRESENT AT BEDSIDE - ICE PACK APPLIED IN THE HEAD TO LESSEN THE HEADACHE, ALSO PRUNE JUICE GIVEN. -DAUGHTER LEFT AT 2029 AND EXPRESS HER APPRECIATION FOR F/U HER REQUEST.KEPT ON CLOSE WATCH, BED LOW AND CLOCKED ,CALL LIGHT WITHIN EASY REACH.
--- NOTE | 2018-11-10 20:50 | NUR ---
RN NOTES: -IV LINE TRANSPARENT DRESSING CHANGE , CONTINUE ON ICE PACK FOR HEADACHE, PRN TYLENOL GIVEN AT 2020 Addendum: 11/11/18 at 6 by PERCY MATA RN ADDITIONAL NOTES: AT 2100 BP CHECKED-142/76, SHE LOOKS MORE RELAX NOW.
[2018-11-10] MEDS: MAGNESIUM HYDROXIDE 30 ML UDC PO PRN (21:34)
[2018-11-10] MEDS: ENOXAPARIN SODIUM 40 MG/0.4 ML DISP.SYRIN SQ SCH (21:34)
--- NOTE | 2018-11-11 03:06 | NUR ---
RN NOTES: -NO COMPLAINTS OF HEADACHE, ASLEEP AT SHORT INTERVALS.CONTINUE ON CLOSE WATCH.CALL LIGHT WITHIN EASY REACH.
[2018-11-11 04:00] VITALS: BP 152/78
--- NOTE | 2018-11-11 05:00 | NUR ---
RN NOTES: AT 0400 FOUND PATIENT PULLED OUT HER IV CANNULA ON THE RAC. IV CANNULA ON THE LAC STILL PATENT AND WORKING, IVF CONTINUE ON THE LAC NS AT 75ML/HR ONGOING VIA INFUSION PUMP. INSTRUCT NOT TO PULL OUT HER IV CANULA.
--- NOTE | 2018-11-11 06:58 | NUR ---
RN NOTES: TAKING A SHORT NAP IN BETWEEN, AWAKE MOST OF THE TIME, CALLS AND NEEDS ATTENDED, FALL,SAFETY AND ASPIRATION PRECAUTION OBSERVED, CALL LIGHT WITHIN EASY REACH, ENDORSED FOR CONTINUITY OF CARE.
[2018-11-11 07:26] LABS: CALCIUM, SERUM 8.9 mg/dL (8.5-10.1); CREATININE 0.7 mg/dL (0.6-1.3); MAGNESIUM 2.3 mg/dL (1.8-2.4); POTASSIUM 3.8 mmol/L (3.5-5.1)
--- NOTE | 2018-11-11 07:30 | NUR ---
MS/RN OPENING NOTES PATIENT IN BED RESTING COMFORTABLY. EASILY AROUSABLE. ABLE TO MAKE NEEDS KNOWN. PATIENT IS MOSTLY CITIZEN OF [place] SPEAKING. NO PAIN OR ACUTE DISTRESS AT THIS TIME. RESPIRATION EVEN AND UNLABORED. SKIN IS DRY WARM TO TOUCH. F/C INTACT AND PATENT. DRAINING YELLOW URINE. PATIENT CONTINUES TO TOLERATE IVF WELL. ALL NEEDS ANTICIPATED. CALL LIGHT WITHIN REACHED. BED LOCKED AND IN LOWEST POSITION. SAFETY MAINTAINED. PLAN OF CARE DISCUSSED. WILL CONTINUE TO MONITOR CLOSELY.
[2018-11-11 08:00] VITALS: BP 146/63
[2018-11-11] MEDS: FLUTICASONE PROPIONATE 16 GM BOTTLE NS SCH (08:45)
[2018-11-11] MEDS: DULOXETINE HCL 30 MG CAPSULE.DR PO SCH (08:46)
[2018-11-11] MEDS: AMLODIPINE BESYLATE 10 MG TABLET PO SCH (08:46)
[2018-11-11] MEDS: MAGNESIUM HYDROXIDE 30 ML UDC PO PRN (08:46)
[2018-11-11] MEDS: DONEPEZIL 5 MG TABLET PO SCH (08:46)
[2018-11-11] MEDS: TOLTERODINE 2 MG CAP.SR PO SCH (08:46)
[2018-11-11] MEDS: METOPROLOL SUCCINATE 25 MG TAB.SR.24H PO SCH (08:47)
[2018-11-11] MEDS ORDERED: NA PHOS,M-B/NA PHOS,DI-BA 1 EA ENEMA RC PRN (11:00)
[2018-11-11] MEDS ORDERED: MAGNESIUM CITRATE 296 ML BOTTLE PO ONE (11:00)
[2018-11-11 16:00] VITALS: BP 149/67
[2018-11-11] MEDS: IV NS 0.9% 1,000 ML IV PRN (16:35)
--- NOTE | 2018-11-11 19:13 | NUR ---
MS/RN CLOSING NOTES PATIENT CONTINUES TO REMAIN IN STABLE CONDITION THROUGHOUT THE SHIFT. PROVIDED COMFORT AND SAFETY. PATIENT WAS ABLE TO HAVE 2 BIG BOWEL MOVEMENT DURING THE SHIFT. F/C INTACT AND PATENT. DRAINING SLIGHTLY PINKISH URINE DUE TO PATIENT TUGGING ON THE F/C. INFORMED DR. MERCHANT. HE ORDERED URINALYSIS. URINE COLLECTED AND WAS PLACED IN THE SPECIMEN FRIDGE. PATIENT CONTINUES TO TOLERATE IVF WELL. ALL NEEDS ANTICIPATED. CALL LIGHT WITHIN REACHED. BED LOCKED AND IN LOWEST POSITION. SAFETY MAINTAINED. PLAN OF CARE DISCUSSED. WILL CONTINUE TO MONITOR CLOSELY. ENDORSED TO PM NURSE FOR SUSY.
[2018-11-11 20:00] VITALS: BP_SYST 119; BP_SYST 149; BP_DIAS 67; BP_DIAS 77
[2018-11-11] MEDS: ENOXAPARIN SODIUM 40 MG/0.4 ML DISP.SYRIN SQ SCH (21:09)
[2018-11-12] VITALS (8 sets, daily range): BP systolic 124–142; BP diastolic 64–87
--- NOTE | 2018-11-12 07:28 | NUR ---
RN OPENING NOTES RECEIVED PATIENT AWAKE AND RESTING IN BED COMFORTABLY. SHE IS AO X2, VERBAL (YORUBA SPEAKING), AND AMBULATORY WITH ASSIST. SHE HAS A FC, INTACT, PATENT, SLIGHT BLOOD TINGED (MD AWARE). SHE IS ON RA, TOLERATING WELL, SHOWS NO S/SX OF RESP DISTRESS OR SOB. SHE IS ON A SOFT DIET, TOLERATING WELL. SKIN IS INTACT. L HAND 22 G INFUSING NS AT 75 ML/HR. NO AM LABS ORDERED FOR TODAY. SAFETY MEASURES HAVE BEEN IMPLEMENTED, CALL LIGHT IS WITHIN REACH, BED IS IN LOWEST AND LOCKED POSITION, SIDE RAILS UP X2, WILL CONTINUE TO MONITOR FOR ANY CHANGES.
--- NOTE | 2018-11-12 08:00 | NUR ---
PT IS CONFUSED AND WANTS TO GET OUT OF BED. MOVED HER TO 117-2 TO BE CLOSER TO THE NURSES STATION, WILL CONTINUE TO MONITOR
[2018-11-12] MEDS: DULOXETINE HCL 30 MG CAPSULE.DR PO SCH (08:31)
[2018-11-12] MEDS: TOLTERODINE 2 MG CAP.SR PO SCH (08:31)
[2018-11-12] MEDS: DONEPEZIL 5 MG TABLET PO SCH (08:31)
[2018-11-12] MEDS: METOPROLOL SUCCINATE 25 MG TAB.SR.24H PO SCH (08:32)
[2018-11-12] MEDS: AMLODIPINE BESYLATE 10 MG TABLET PO SCH (08:32)
[2018-11-12] MEDS: FLUTICASONE PROPIONATE 16 GM BOTTLE NS SCH (08:38)
--- NOTE | 2018-11-12 19:07 | NUR ---
RN CLOSING NOTES PATIENT IS RESTING IN BED COMFORTABLY, DENIES ANY PAIN OR DISCOMFORT. PT NEEDS HAVE BEEN MET. NO ACUTE CHANGES OCCURRED THROUGHOUT THE SHIFT. VITAL SIGNS ARE STABLE. SHE IS ON RA, NO SIGNS OF SOB. SKIN IS INTACT. SAFETY MEASURES HAVE BEEN IMPLEMENTED, CALL LIGHT IS WITHIN REACH, BED IS IN LOWEST AND LOCKED POSITION, SIDE RAILS UP X2, PT HAS BEEN ENDORSED TO NIGHTSHIFT RN FOR CONTINUITY OF CARE
--- NOTE | 2018-11-12 20:21 | NUR ---
rn initial notes: received report from aminata heard. pt transferred from imelda, was brought to the unit via bed. pt a/o x2 kosovan speaking only. pt has iv access on left hand , patent and flushing well, infusing with ns at 75ml/hr. pt received with shipley catheter draining with bloody urine. ble kept offloaded on pillows. inventory of belongings completed by roxy shelby. safety precautions for fall initiated, call light in reach. will continue monitoring pt.
[2018-11-12] MEDS: ENOXAPARIN SODIUM 40 MG/0.4 ML DISP.SYRIN SQ SCH (22:00)
--- NOTE | 2018-11-12 22:30 | NUR ---
rn notes: report given to wendy heard for continuity of care.
[2018-11-13] MEDS: ACETAMINOPHEN 325 MG TABLET PO PRN (04:31)
--- NOTE | 2018-11-13 05:22 | NUR ---
RN NOTES: PT KEEP PULLING ON HER CATHETER,NOTED GROSS HEMATURIA IN THE RIVERA BAG, PT SPITTING , HITTING AND KICKING STAFF, PULLED OUT IV. INFORMED EPIC MD BUDGET ENGINEER OBTAINED, T/O OF BILATERAL SOFT WRIST RESTRAINT, CBC AND UA. ORDER READ BACK AND VERIFIED.
[2018-11-13] MEDS: IV NS 0.9% 1,000 ML IV PRN (06:14)
--- NOTE | 2018-11-13 06:42 | NUR ---
MS RN NOTES PATIENT AWAKE IN BED WITH NO DISTRESS NOTED. CALL LIGHT WITHIN REACH. ALL DUE MEDS GIVEN ORDERED WITH NO ASE NOTED. BILATERAL SOFT WRIST RESTRAINTS INTACT WITH NO SKIN BREAKDOWN OR DISCOLORATION AND NOTED WITH GOOD CIRCULATION. F/C INTACT AND PATENT, NOTED WITH 1250ML HEMATURIA. URINE SPECIMEN OBTAINED AND PICKED UP BY LAB. NO FURTHER C/O PAIN OR DISCOMFORT. PERIPHERAL LINE REPLACED WITH RFA #22 GAUGE AND INTACT/PATENT. BED IN LOW LOCK SETTING. ROOM FREE OF CLUTTER AND BELONGINGS KEPT NEAR BEDSIDE. WILL ENDORSE TO ONCOMING SHIFT.
[2018-11-13 06:49] LABS: APPEARANCE,URINE CLOUDY (CLEAR); BILIRUBIN,URINE 3+ (NEGATIVE); BLOOD, URINE 3+ Ery/uL (NEGATIVE); COLOR,URINE RED (YELLOW); KETONES,URINE 2+ (NEGATIVE); LEUKOCYTE ESTERASE ,URINE 3+ (NEGATIVE); NITRITE, URINE POSITIVE (NEGATIVE); PH,URINE 7.5 (5.0-8.0); PROTEIN,URINE 3+ mg/dl (NEGATIVE); UGLUCOSE TRACE mg/dL (NEGATIVE); UROBILINOGEN,URINE >=8.0 EU/dL (0.2)
--- NOTE | 2018-11-13 07:21 | NUR ---
SPOKE WITH DTR SHWETA REGARDING PATIENT'S SUSY AND NEW ORDERED RECEIVED FROM MD. DTR VERBALIZED GOOD UNDERSTANDING. PER DTR, PLS CALL HER AT HER JOB FOR ANY UPDATES AT [phone] [phone]
[2018-11-13 07:47] LABS: BASOPHILS % (AUTO) 0.5 % (0.0-2.0); EOSINOPHILS % (AUTO) 0.3 % (0.0-6.0); HEMATOCRIT 39 % (33-45); LYMPHOCYTES # (AUTO) 1.7 /CMM (0.8-4.8); LYMPHOCYTES % (AUTO) 16.8 % (20.0-44.0); MEAN CORPUSCULAR HGB CONC 34 g/dl (31.0-36.0); MEAN CORPUSCULAR VOLUME 101 fL (82-100); MONOCYTES # (AUTO) 0.9 /CMM (0.1-1.30); MONOCYTES % (AUTO) 8.9 % (2.0-12.0); NEUTROPHILS # (AUTO) 7.4 /CMM (1.8-8.9); NEUTROPHILS % (AUTO) 73.5 % (43.0-81.0); PLATELET COUNT (AUTO) 291 /CMM (150-450); RED BLOOD CELL COUNT(AUTO) 3.83 MIL/uL (4.0-5.2); WHITE BLOOD COUNT (AUTO) 10.1 K/uL (4.3-11.0)
[2018-11-13 08:00] VITALS: BP 149/80
[2018-11-13 08:52] VITALS: BP 149/80
[2018-11-13] MEDS: AMLODIPINE BESYLATE 10 MG TABLET PO SCH (08:52)
[2018-11-13] MEDS: DULOXETINE HCL 30 MG CAPSULE.DR PO SCH (08:52)
[2018-11-13] MEDS: DONEPEZIL 5 MG TABLET PO SCH (08:52)
[2018-11-13] MEDS: METOPROLOL SUCCINATE 25 MG TAB.SR.24H PO SCH (08:52)
[2018-11-13] MEDS: FLUTICASONE PROPIONATE 16 GM BOTTLE NS SCH (08:54)
[2018-11-13 09:49] LABS: BACTERIA,URINE 2+ /HPF (None Seen); RBC,URINE TOO NUMEROUS TO COUN /HPF (0-2); SQUAMOUS EPITHELIAL CELL,UR Few /HPF (None Seen); WBC,URINE TOO NUMEROUS TO COUN /HPF (0-3)
[2018-11-13] MEDS ORDERED: ASPI-1152 PO (11:01)
[2018-11-13] MEDS ORDERED: ATOR10TA PO (11:01)
--- NOTE | 2018-11-13 11:05 | NUR ---
MS/RN NOTE THE PATIENT AMBULATES TO RESTROOM WITH STAND BY ASSIST. THE PATIENT NOTED URINATING LIGHT PINK COLOR URINE. DENIES DISCOMFORT UPON URINATION. NO BLADDER DISTENSION NOTED.
--- NOTE | 2018-11-13 11:08 | NUR ---
MS/RN NOTE 3 FOLLOW UP CALLS HAVE BEEN MADE TO PHARMACY TO SEND DETROL LA 4 MG DUE AT 0900. JUST MADE ANOTHER FOLLOW UP WITH PHARMACY METAL SPINNER. WILL CONTINUE TO FOLLOW UP UNTIL THE MEDICATION IS DELIVERED.
--- NOTE | 2018-11-13 11:12 | NUR ---
MS/RN NOTE THE PATIENT HAS ALLERGY TO PIPERACILLIN, TAZOBACTAM AND CODEINE. DR MERCHANT PUT AN ORDER OF ROCEPHIN DESPITE BEING AWARE OF PATIENT`S ALLERGIES. WILL ADMINISTER THE MEDICATION ORDERED AND MONITOR THE PATIENT CLOSELY FOR ADVERSE SIDE EFFECTS.
[2018-11-13] MEDS: TOLTERODINE 2 MG CAP.SR PO SCH (11:36)
[2018-11-13] MEDS ORDERED: CEFTRIAXONE 1 G in IV D5W 50 ML IV ONE (12:00)
[2018-11-13] MEDS ORDERED: CEFTRIAXONE 1 G in IV D5W 50 ML IV SCH ×4 (12:00)
--- NOTE | 2018-11-13 12:25 | NUR ---
MS/RN NOTE WAITING PHARMACY TO DELIVER ROCEPHIN 1 G DUE AT 1200.
--- NOTE | 2018-11-13 12:37 | NUR ---
MS/RN NOTE ENTERED PRBC ORDER IS WRONG BECAUSE IT WAS MEANT FOR ANOTHER PATIENT. ORDER IS CANCELED.
--- NOTE | 2018-11-13 13:06 | NUR ---
MS/RN NOTE ROCEPHIN 1G DUE AT 1200 WAS DELIVERED TO UNIT AT 1304.
--- NOTE | 2018-11-13 13:30 | NUR ---
MS/RN NOTE UPON ASSESSMENT NOTED THAT THE PATIENT IS CALM, COOPERATIVE AND DOES NOT NEED RESTRAINS ANYMORE. RECEIVED ORDER FROM DR MERCHANT TO DISCONTINUE ACUTE MEDICAL RESTRAINS. THE ORDER IS READ BACK, VERIFIED. NOTED AND ONIEL OUT. THE RESTRAINS ARE REMOVED. NO SKIN BREAKDOWN NOTED.
--- NOTE | 2018-11-13 15:05 | NUR ---
MS/RN NOTE THE PATIENT IS RECEIVED IN BED. ALERT AND ORIENTED X2. ABLE TO MAKE NEEDS KNOWN VERBALLY. THE PATIENT SPEAKS ALGERIAN. DENIES PAIN. IN ROOM AIR AND SATURATION IS AT 97%. RFA G 22 PATENT AND NORMAL SALINE INFUSING AT 75ML/HR AND NO S/S INFILTRATION NOTED. PATIENT`S RIVERA CATH WAS DISCONTINUED BY PM SHIFT ENDORSED BY THE SAME PM SHIFT. NO BLADDER DISTENSION NOTED. RESTRAINS ON PER ORDER. ASSESSMENT AND NO S/S POOR CIRCULATION NOTED, NO SKIN BREAKDOWN NOTED. BED LOW AND LOCKED. SIDE RAILS UP X3. CALL LIGHT WITHIN REACH. WILL CONTINUE TO MONITOR. Addendum: 11/13/18 at 1515 by TERESE BARR RN /DONNELL NOTE THE ABOVE NOTE IS AN OPENING NOTE 11/13/2018 0735.
--- NOTE | 2018-11-13 16:44 | NUR ---
MS/RN NOTE THE PATIENT ALERT AND ORIENTED X2. IN ROOM AIR AND DENIES SOB. RESPIRATION REGULAR AND UNLABORED. DENIES PAIN. NO BLADDER DISTENSION NOTED. DISCHARGE EDUCATION PROVIDED TO THE PATIENT AND CAREGIVER *DAUGHTER SHWETA). BOTH VERBALIZED UNDERSTANDING. PRESCRIPTION GIVEN TO THE PATIENT`S DAUGHTER AND THE COPY IS SAVED IN THE CHART. THE PATIENT IS PICKED UP BY THE DAUGHTER VIA PRIVATE CAR. PATIENT LEFT THE HOSPITAL IN STABLE CONDITION.
== END 2018-11-13 16:00 | disposition home or self-care (01) | DRG 64 ==
LOC: ER 11:49 → TELE-TD 13:45 → MEDSG1 11-10 09:37 → MEDSG2 11-12 20:32
PROVIDERS: ADMIT Nurse Practitioner Acute Care; ATTEND Nurse Practitioner Acute Care
DX: I63.9 Cerebral infarction, unspecified (principal); G93.41 Metabolic encephalopathy; I50.33 Acute on chronic diastolic (congestive) heart failure; N39.0 Urinary tract infection, site not specified; I11.0 Hypertensive heart disease with heart failure; E78.5 Hyperlipidemia, unspecified; E87.6 Hypokalemia; H40.9 Unspecified glaucoma; D53.9 Nutritional anemia, unspecified; F03.90 Unspecified dementia, unspecified severity, without behavioral disturbance, psychotic disturbance, mood disturbance, and anxiety; K21.9 Gastro-esophageal reflux disease without esophagitis; K59.00 Constipation, unspecified; E83.51 Hypocalcemia; E88.09 Other disorders of plasma-protein metabolism, not elsewhere classified; R32 Unspecified urinary incontinence; G47.00 Insomnia, unspecified; I95.9 Hypotension, unspecified; R00.1 Bradycardia, unspecified
CPT/HCPCS: 36415; 36600; 70450-TC; 71045-TC; 80048-TC; 80053-TC; 80061-TC; 80076-TC; 80305; 81000-TC; 82140-TC; 82962-TC; 83735-TC; 84100-TC; 84443-TC; 84484-TC; 85025-TC; 85730-TC; 87081-TC; 87086-TC; 93307-TC; 97116-TC; 97530-TC; G0378; J0360; J0696; J1650; J3475; J7030; J7060

== ENCOUNTER 2022-02-23 19:33 | Inpatient (IN) | payer MEDICARE, OTHER ==
[~2022-02-23] VITALS: Ht 157.5 cm; Wt 66.7 kg
[~2022-02-23 19:33] MED LIST changes: +AMLO10TA4 PO; +ASPI-1420 PO; +ATOR10TA PO; -BACL10TA PO; -CLON0.2T PO; -DOCU100C36 PO; -FOLI1TAB84 PO; +HYDR-500 PO; -HYDR100T27 PO; +LANS30CA54 PO; -LINA290C PO; +METO25TA4 PO; +MOME17SP; -OLME20TA13 PO; -PANT40TA4 PO; -ROSU20TA2 PO; -TIMO5SOL11 EACHEYE; -TRAM50TA2 PO; -VALS160T2 PO; +ZOLP5TAB8 PO
--- NOTE | 2022-02-23 19:59 | NUR ---
MARY 83 FROM [place] FOR C/O INCREASED SOB X 1 DAY. PER EMS PT SATTING 90% ON R/A. PT A/OX1; YI SPEAKING. TOLERATING N/C 3LPM AT 98%. CONNECTED PT TO POX ANDMONITOR. SAFETY MEASURES IN PLACE.
--- NOTE | 2022-02-23 20:22 | NUR ---
RFA #20G S/L BLOOD COLLECTED AND SENT TO LAB Addendum: 02/23/22 at 2035 by MIGUEL COVID ANTIGEN SWAB COLLECTED AND SENT TO LAB
--- NOTE | 2022-02-23 20:37 | NUR ---
EMT AT PT'S BEDSIDE FOR EKG
--- NOTE | 2022-02-23 20:37 | NUR ---
OIL WELL SERVICES FIELD SUPERVISOR AT PT'S BEDSIDE
[2022-02-23 20:42] LABS: BASOPHILS % (AUTO) 0.1 % (0.0-2.0); EOSINOPHILS % (AUTO) 0.1 % (0.0-6.0); HEMATOCRIT 37 % (33-45); HEMOGLOBIN 11.7 g/dL (11.5-14.8); LYMPHOCYTES % (AUTO) 15.8 % (20.0-44.0); MEAN CORPUSCULAR HGB CONC 31 g/dl (31.0-36.0); MEAN CORPUSCULAR VOLUME 100 fL (82-100); MONOCYTES # (AUTO) 1.5 K/uL (0.1-1.30); MONOCYTES % (AUTO) 11.4 % (2.0-12.0); NEUTROPHILS # (AUTO) 9.4 K/uL (1.8-8.9); NEUTROPHILS % (AUTO) 72.6 % (43.0-81.0); PLATELET COUNT (AUTO) 283 K/uL (150-450)
[2022-02-23 21:07] LABS: ALANINE AMINOTRANSFERASE 16 U/L (12-78); ALBUMIN 2.7 g/dL (3.4-5.0); ALKALINE PHOSPHATASE 68 U/L (46-116); ASPARTATE AMINOTRANSFERASE 37 U/L (15-37); BILIRUBIN,DIRECT 0.1 mg/dL (0.0-0.2); BILIRUBIN,TOTAL 0.4 mg/dL (0.2-1.0); CALCIUM, SERUM 8.8 mg/dL (8.5-10.1); CARBON DIOXIDE 28 mmol/L (21-32); CHLORIDE 110 mmol/L (98-107); CREATININE 1.2 mg/dL (0.6-1.3); GLUCOSE 169 mg/dL (74-106); POTASSIUM 3.7 mmol/L (3.5-5.1); SODIUM SERUM 147 mmol/L (136-145); TOTAL PROTEIN, SERUM 8.1 g/dL (6.4-8.2); UREA NITROGEN, BLOOD 38 mg/dL (7-18)
[2022-02-23] MEDS ORDERED: FUROSEMIDE 40 MG/4 ML VIAL IV ONE (21:30)
--- NOTE | 2022-02-23 22:23 | NUR ---
UPDATED MANINDER (DAUGHTER) [phone]
[2022-02-23] MEDS ORDERED: NITROGLYCERIN 0.4 MG/TAB BOTTLE SL PRN (23:00)
--- NOTE | 2022-02-23 23:05 | NUR ---
US TECH AT PT'S BEDSIDE FOR ECHOCARDIOGRAM
--- NOTE | 2022-02-23 23:55 | NUR ---
REPORT GIVEN TO ANA McadamsW RN FOR SUSY
[2022-02-24 00:10] VITALS: BP 143/88
--- NOTE | 2022-02-24 00:13 | NUR ---
PT TRANSFERRED TO 310-1 VIA ACLS PROTOCOL. VSS. PT TOLERATED TRANSFER WELL.
--- NOTE | 2022-02-24 00:38 | NUR ---
RN NOTES; RECEIVED PATIENT FROM ER WITH BRIGIDA HUFFMAN CONFUSED,THAI SPEAKING,ON 3L O2 VIA NC ELVIRA WELL,SATTING 97.6%,NO SIGN SOB/DISTRESS NOTED,NO SIGN OF PAIN/DISCOMFORT AT THIS TIME,IV ACCESS ON RFA 20 G SL,PATENT AND INTACT,CALL LIGHT WITHIN REACH,WILL CONTINUE TO MONITOR.
[2022-02-24] MEDS ORDERED: LEVOFLOXACIN 500 MG /D5W 100ML 100 ML IV ONE (01:23)
[2022-02-24] MEDS: ENOXAPARIN SODIUM 30 MG/0.3 ML DISP.SYRIN SQ SCH ×2 (01:28→21:04)
[2022-02-24] MEDS ORDERED: LEVOFLOXACIN 500 MG /D5W 100ML 500 MG in PREMIX 1 EA IV SCH (01:30)
[2022-02-24 05:00] VITALS: BP 105/60
--- NOTE | 2022-02-24 06:40 | NUR ---
RN CLOSING NOTES; PATIENT IN BED SLEEPING BUT EASY TO AROUSED,AOX1 CONFUSED,NICARAGUAN SPEAKING,ON 3L O2 VIA NC ELVIRA WELL,SATTING 98%,NO SIGN SOB/DISTRESS NOTED,NO SIGN OF PAIN/DISCOMFORT DURING SHIFT,DUE MEDS GIVEN ORDER,ALL NEEDS ATTENDED,,IV ACCESS ON RFA 20 G SL,PATENT AND INTACT,CALL LIGHT WITHIN REACH,WILL CONTINUE TO MONITOR.
[2022-02-24 07:00] LABS: ALANINE AMINOTRANSFERASE 14 U/L (12-78); ALBUMIN 2.6 g/dL (3.4-5.0); ALKALINE PHOSPHATASE 66 U/L (46-116); ASPARTATE AMINOTRANSFERASE 36 U/L (15-37); BILIRUBIN,TOTAL 0.5 mg/dL (0.2-1.0); CALCIUM, SERUM 8.9 mg/dL (8.5-10.1); CARBON DIOXIDE 28 mmol/L (21-32); CHLORIDE 109 mmol/L (98-107); CREATININE 1.1 mg/dL (0.6-1.3); GLUCOSE 123 mg/dL (74-106); MAGNESIUM 2.5 mg/dL (1.8-2.4); PHOSPHORUS 2.3 mg/dL (2.5-4.9); POTASSIUM 3.7 mmol/L (3.5-5.1); SODIUM SERUM 147 mmol/L (136-145); TOTAL PROTEIN, SERUM 7.9 g/dL (6.4-8.2); UREA NITROGEN, BLOOD 36 mg/dL (7-18)
[2022-02-24 07:10] LABS: THYROID STIMULATING HORMONE 2.275 uIU/mL (0.358-3.74)
--- NOTE | 2022-02-24 07:30 | NUR ---
RN OPENING NOTE RECEIVED PATIENT IN BED AWAKE, A/O X1, VERBALLY RESPONSIVE, MALIAN SPEAKING. ON O2 @ 3LPM VIA N/C, NO SOB NOTED, BREATHING EVEN AND UNLABORED. NOTED WITH IV ACCESS ON RIGHT FOREARM #20G, INTACT AND PATENT SALINE LOCKED. NO S/SX OF PAIN OR DISCOMFORT AT THIS TIME. ON TELE MONITORING SHOWING CONTROLLED SR, HR @ 102. NO CARDIAC DISTRESS NOTED. SAFETY MEASURE IN PLACE. BED IN LOWEST AND LOCKED POSITION, SIDE RAILS UP X2, CALL LIGHT AND TABLE PLACED WITHIN EASY REACH. WILL CONTINUE TO MONITOR PATIENT.
[2022-02-24 07:31] LABS: BASOPHILS % (AUTO) 0.1 % (0.0-2.0); EOSINOPHILS % (AUTO) 0.1 % (0.0-6.0); HEMATOCRIT 37 % (33-45); HEMOGLOBIN 11.8 g/dL (11.5-14.8); LYMPHOCYTES # (AUTO) 2.2 K/uL (0.8-4.8); LYMPHOCYTES % (AUTO) 14.2 % (20.0-44.0); MEAN CORPUSCULAR HGB CONC 32 g/dl (31.0-36.0); MEAN CORPUSCULAR VOLUME 96 fL (82-100); MONOCYTES # (AUTO) 1.6 K/uL (0.1-1.30); MONOCYTES % (AUTO) 10.2 % (2.0-12.0); NEUTROPHILS # (AUTO) 11.9 K/uL (1.8-8.9); NEUTROPHILS % (AUTO) 75.4 % (43.0-81.0); PLATELET COUNT (AUTO) 309 K/uL (150-450); RED BLOOD CELL COUNT(AUTO) 3.83 MIL/uL (4.0-5.2); WHITE BLOOD COUNT (AUTO) 15.8 K/uL (4.3-11.0)
[2022-02-24 08:00] VITALS: BP 155/85
[2022-02-24] MEDS: FUROSEMIDE 40 MG/4 ML VIAL IV SCH ×2 (08:27→17:07)
[2022-02-24] MEDS: METOPROLOL SUCCINATE 25 MG TAB.SR.24H PO SCH (10:48)
[2022-02-24] MEDS: NEUTRA PHOS 1 POWD.PACKET PO SCH ×2 (10:48→17:07)
[2022-02-24] MEDS: PANTOPRAZOLE 40 MG TABLET.DR PO SCH (10:48)
[2022-02-24] MEDS: ASPIRIN EC 81 MG TABLET.DR PO SCH (10:48)
[2022-02-24] MEDS: DULOXETINE HCL 30 MG CAPSULE.DR PO SCH (10:48)
[2022-02-24] MEDS: DONEPEZIL 5 MG TABLET PO SCH (10:48)
[2022-02-24] MEDS: AMLODIPINE BESYLATE 10 MG TABLET PO SCH (10:49)
[2022-02-24] MEDS: TOLTERODINE 2 MG CAP.SR PO SCH (11:07)
--- NOTE | 2022-02-24 11:14 | NUR ---
RN NOTE RECEIVED NEW ORDER FROM RUPERT MOYA TO INSERT RIVERA CATHETER, NOTED AND CARRIED OUT.
[2022-02-24 12:00] VITALS: BP 124/74
[2022-02-24 16:00] VITALS: BP 111/69
[2022-02-24] MEDS: ATORVASTATIN 10 MG TABLET PO SCH (17:07)
--- NOTE | 2022-02-24 18:57 | NUR ---
RN CLOSING NOTE PATIENT RESTING IN BED, A/O X1, NO SIGNS OF ACUTE DISTRESS NOTED. REMAINS ON O2 @ 3LPM VIA N/C, NO SOB NOTED, BREATHING EVEN AND UNLABORED. IV ACCESS ON RIGHT FOREARM #20G, INTACT AND PATENT SALINE LOCKED. NO S/SX OF PAIN OR DISCOMFORT AT THIS TIME. ON TELE MONITORING SHOWING CONTROLLED SR, HR @ 92. NO CARDIAC DISTRESS NOTED. ALL DUE MEDS GIVEN, TOLERATED WELL. F/C INTACT, DRAINING CLEAR YELLOW URINE VIA GRAVITY. SAFETY MEASURE IN PLACE. BED IN LOWEST AND LOCKED POSITION, SIDE RAILS UP X2, CALL LIGHT AND TABLE PLACED WITHIN EASY REACH. WILL ENDORSE TO NEXT SHIFT FOR CONTINUITY OF CARE.
--- NOTE | 2022-02-24 19:54 | NUR ---
RECEIVED IN BED PULLING OFF TELE MONITOR LEADS REPLACED SHE IS CONFUSED ON THE HEART MONITOR SHE IS SR MIGUEL NOTED CLEAR YELLOW DRAINAGE BED ALARM IS ON
[2022-02-24 20:00] VITALS: BP 107/67
[2022-02-24] MEDS: LEVOFLOXACIN 250 MG /D5W 50 ML 250 MG in PREMIX 1 EA IV SCH (22:34)
[2022-02-25] VITALS: BP 117/68
[2022-02-25] MEDS ORDERED: LEVOFLOXACIN 250 MG /D5W 50 ML 250 MG in PREMIX 1 EA IV SCH (01:00)
[2022-02-25 04:00] VITALS: BP 125/73
--- NOTE | 2022-02-25 05:08 | NUR ---
CLOSING NOTES: ALERT AWAKE THRU MOST OF THE NIGHT COFUSED AND AT TIMES SHE WILL STRIKE OUT AND SWAT AT THE NURSE WHEN BEING REPOSITIONED OR CLEANED BED ALARM ON THRU THE NIGHT SHE BARONE NOT MAKE AN EFFECOT TO GET OOB OUT PUT THIS 12 HOURS 500 ML CLEAR YELLOW SHE WILL NOT KEEP HER N/C ON BUT SHE DOES NOT DESAT HER 02 SATS 95% NO SEEN SOB
[2022-02-25 05:38] LABS: BILIRUBIN,URINE NEGATIVE (NEGATIVE); COLOR,URINE YELLOW (YELLOW); LEUKOCYTE ESTERASE ,URINE NEGATIVE (NEGATIVE); NITRITE, URINE NEGATIVE (NEGATIVE); PROTEIN,URINE NEGATIVE (NEGATIVE); UGLUCOSE NEGATIVE (NEGATIVE); UROBILINOGEN,URINE 0.2 EU/dL (0.2)
[2022-02-25 05:42] LABS: BACTERIA,URINE Rare /HPF (None Seen); SQUAMOUS EPITHELIAL CELL,UR Rare /HPF (None Seen)
[2022-02-25 06:56] LABS: BASOPHILS % (AUTO) 0.4 % (0.0-2.0); EOSINOPHILS % (AUTO) 0.8 % (0.0-6.0); HEMATOCRIT 38 % (33-45); HEMOGLOBIN 12.3 g/dL (11.5-14.8); LYMPHOCYTES % (AUTO) 22.1 % (20.0-44.0); MEAN CORPUSCULAR HGB CONC 32 g/dl (31.0-36.0); MEAN CORPUSCULAR VOLUME 97 fL (82-100); MONOCYTES % (AUTO) 11.5 % (2.0-12.0); NEUTROPHILS # (AUTO) 5.9 K/uL (1.8-8.9); NEUTROPHILS % (AUTO) 65.2 % (43.0-81.0); PLATELET COUNT (AUTO) 358 K/uL (150-450); RED BLOOD CELL COUNT(AUTO) 3.96 MIL/uL (4.0-5.2)
--- NOTE | 2022-02-25 07:00 | NUR ---
LEATHER TOGGLER OPENING NOTE RECEIVED PATIENT IN BED AWAKE, A/O X1, VERBALLY RESPONSIVE, [place] SPEAKING. ON O2 @ 3LPM VIA N/C, NO SOB NOTED, BREATHING EVEN AND UNLABORED. NOTED WITH IV ACCESS ON RIGHT FOREARM #20G, INTACT AND PATENT SALINE LOCKED. NO S/SX OF PAIN OR DISCOMFORT AT THIS TIME. ON TELE MONITORING SHOWING CONTROLLED SR, HR @ 81. NO CARDIAC DISTRESS NOTED. SAFETY MEASURE IN PLACE. BED IN LOWEST AND LOCKED POSITION, SIDE RAILS UP X2, CALL LIGHT AND TABLE PLACED WITHIN EASY REACH. WILL CONTINUE TO MONITOR PATIENT.
[2022-02-25 07:17] LABS: ALANINE AMINOTRANSFERASE 29 U/L (12-78); ALBUMIN 2.7 g/dL (3.4-5.0); ALKALINE PHOSPHATASE 74 U/L (46-116); ASPARTATE AMINOTRANSFERASE 50 U/L (15-37); BILIRUBIN,TOTAL 0.5 mg/dL (0.2-1.0); CALCIUM, SERUM 8.7 mg/dL (8.5-10.1); CARBON DIOXIDE 31 mmol/L (21-32); CHLORIDE 105 mmol/L (98-107); CREATININE 1.3 mg/dL (0.6-1.3); GLUCOSE 130 mg/dL (74-106); MAGNESIUM 2.3 mg/dL (1.8-2.4); PHOSPHORUS 3.7 mg/dL (2.5-4.9); POTASSIUM 3.3 mmol/L (3.5-5.1); SODIUM SERUM 147 mmol/L (136-145); TOTAL PROTEIN, SERUM 8.2 g/dL (6.4-8.2); UREA NITROGEN, BLOOD 43 mg/dL (7-18)
[2022-02-25 08:00] VITALS: BP 145/82
[2022-02-25] MEDS: PANTOPRAZOLE 40 MG TABLET.DR PO SCH (08:29)
[2022-02-25] MEDS: ASPIRIN EC 81 MG TABLET.DR PO SCH (08:29)
[2022-02-25] MEDS: DULOXETINE HCL 30 MG CAPSULE.DR PO SCH (08:30)
[2022-02-25] MEDS: DONEPEZIL 5 MG TABLET PO SCH (08:30)
[2022-02-25] MEDS: AMLODIPINE BESYLATE 10 MG TABLET PO SCH (08:31)
[2022-02-25] MEDS: METOPROLOL SUCCINATE 25 MG TAB.SR.24H PO SCH (08:31)
[2022-02-25] MEDS: FUROSEMIDE 40 MG/4 ML VIAL IV SCH ×2 (08:32→17:04)
[2022-02-25] MEDS: TOLTERODINE 2 MG CAP.SR PO SCH (08:39)
[2022-02-25] MEDS ORDERED: POTASSIUM CHLORIDE 20 MEQ TAB.PRT.SR PO SCH (10:00)
--- NOTE | 2022-02-25 11:10 | NUR ---
RN NOTES RAPID INFLUENZA SWAB DONE AND BROUGHT SPECIMEN TO LAB. WILL F/U RESULTS
[2022-02-25] MEDS: POTASSIUM CHLORIDE 20 MEQ TAB.PRT.SR PO SCH ×2 (11:24→12:32)
[2022-02-25 12:00] VITALS: BP 106/60
[2022-02-25 16:00] VITALS: BP 108/71
[2022-02-25] MEDS: ATORVASTATIN 10 MG TABLET PO SCH (17:04)
--- NOTE | 2022-02-25 17:59 | NUR ---
RN NOTES PT PLACED ON ROOM AIR, TOLERATING WELL WITH NO C/O OF SOB. 02 SAT NOTED AT 94-95%. WILL CONTINUE TO MONITOR.
--- NOTE | 2022-02-25 18:39 | NUR ---
PSYCHOLOGIST ENGINEERING CLOSING NOTE PATIENT AWAKE IN BED, A/O X2, VERBALLY RESPONSIVE, GREEK SPEAKING. FILTERED OFF OF O2 AND CURRENTLY ON ROOM AIR, NO SOB NOTED, BREATHING EVEN AND UNLABORED. NOTED WITH IV ACCESS ON RIGHT FOREARM #20G, INTACT AND PATENT SALINE LOCKED. NO S/S OF PAIN OR DISCOMFORT AT THIS TIME. ON TELE MONITORING SHOWING CONTROLLED SR, HR @ 81. NO CARDIAC DISTRESS NOTED. SAFETY MEASURES IN PLACE. BED IN LOWEST AND LOCKED POSITION, SIDE RAILS UP X2, CALL LIGHT AND TABLE PLACED WITHIN EASY REACH. WILL ENDORSE SUSY TO NIGHT NURSE.
--- NOTE | 2022-02-25 19:30 | NUR ---
MOTORCYCLE POLICE OFFICER OPENING NOTE RECEIVED PATIENT IN BED AWAKE, A/O X1, VERBALLY RESPONSIVE, BRITISH SPEAKER.CONFUSED . REORIENT THE PATIENT ON ROOM AIR CURRENTLY NO SOB NOTED, BREATHING EVEN AND UNLABORED. NOTED WITH IV ACCESS ON RIGHT FOREARM #20G, INTACT AND PATENT SALINE LOCKED. NO S/SX OF PAIN OR DISCOMFORT AT THIS TIME.RIVERA INTACT WITH CLEAR URINE NOTED. ON TELE MONITOR READING SR HR @ 80. NO CARDIAC DISTRESS NOTED. ALL SAFETY MEASURE IN PLACE. BED IN LOWEST AND LOCKED POSITION, SIDE RAILS UP X2, CALL LIGHT AND TABLE PLACED WITHIN EASY REACH. WILL CONTINUE TO MONITOR PATIENT.
[2022-02-25 20:00] VITALS: BP 113/71
[2022-02-25] MEDS: ENOXAPARIN SODIUM 30 MG/0.3 ML DISP.SYRIN SQ SCH (20:18)
[2022-02-25] MEDS: LEVOFLOXACIN 250 MG /D5W 50 ML 250 MG in PREMIX 1 EA IV SCH (23:25)
[2022-02-26 00:52] VITALS: BP 102/68
[2022-02-26 05:00] VITALS: BP 133/77
--- NOTE | 2022-02-26 06:43 | NUR ---
BLACKTOP PAVER OPERATOR CLOSING NOTE PATIENT IN BED AWAKE, A/O X1, VERBALLY RESPONSIVE, THAI SPEAKER.CONFUSED . REORIENT THE PATIENT . ON ROOM AIR CURRENTLY NO SOB NOTED, BREATHING EVEN AND UNLABORED. NOTED WITH IV ACCESS ON RIGHT FOREARM #20G, INTACT AND PATENT SALINE LOCKED. NO S/SX OF PAIN OR DISCOMFORT AT THIS TIME.RIVERA INTACT WITH CLEAR URINE NOTED. ON TELE MONITOR READING SR HR @ 94. NO CARDIAC DISTRESS NOTED. DUE MEDS GIVEN ORDERED. ALL SAFETY MEASURE IN PLACE. BED IN LOWEST AND LOCKED POSITION, SIDE RAILS UP X2, CALL LIGHT AND TABLE PLACED WITHIN EASY REACH. WILL ENDORSE FOR SUSY.
[2022-02-26 06:48] LABS: BASOPHILS % (AUTO) 0.3 % (0.0-2.0); EOSINOPHILS % (AUTO) 1.5 % (0.0-6.0); HEMATOCRIT 40 % (33-45); LYMPHOCYTES # (AUTO) 2.3 K/uL (0.8-4.8); LYMPHOCYTES % (AUTO) 28.2 % (20.0-44.0); MEAN CORPUSCULAR HGB CONC 33 g/dl (31.0-36.0); MEAN CORPUSCULAR VOLUME 96 fL (82-100); MONOCYTES % (AUTO) 11.4 % (2.0-12.0); NEUTROPHILS # (AUTO) 4.9 K/uL (1.8-8.9); NEUTROPHILS % (AUTO) 58.6 % (43.0-81.0); PLATELET COUNT (AUTO) 421 K/uL (150-450); RED BLOOD CELL COUNT(AUTO) 4.15 MIL/uL (4.0-5.2); WHITE BLOOD COUNT (AUTO) 8.3 K/uL (4.3-11.0)
[2022-02-26 07:11] LABS: CALCIUM, SERUM 9.5 mg/dL (8.5-10.1); CARBON DIOXIDE 31 mmol/L (21-32); CHLORIDE 104 mmol/L (98-107); CREATININE 1.5 mg/dL (0.6-1.3); GLUCOSE 124 mg/dL (74-106); MAGNESIUM 2.5 mg/dL (1.8-2.4); POTASSIUM 3.7 mmol/L (3.5-5.1); SODIUM SERUM 144 mmol/L (136-145); UREA NITROGEN, BLOOD 54 mg/dL (7-18)
--- NOTE | 2022-02-26 07:22 | NUR ---
QUALITY ASSURANCE GROUP LEADER OPENING NOTE RECEIVED PATIENT IN BED AWAKE, A/O X2, VERBALLY RESPONSIVE, CYPRI[place] SPEAKER.CONFUSED . PATIENT ON ROOM AIR CURRENTLY NO SOB NOTED, BREATHING EVEN AND UNLABORED. NOTED WITH IV ACCESS ON RIGHT FOREARM #20G, INTACT AND PATENT SALINE LOCKED. NO S/SX OF PAIN OR DISCOMFORT AT THIS TIME.RIVERA INTACT WITH CLEAR URINE NOTED. ON TELE MONITOR READING SR HR @ 85. NO CARDIAC DISTRESS NOTED. ALL SAFETY MEASURE IN PLACE. BED IN LOWEST AND LOCKED POSITION, SIDE RAILS UP X2, CALL LIGHT AND TABLE PLACED WITHIN EASY REACH. WILL CONTINUE TO MONITOR PATIENT.
[2022-02-26 08:00] VITALS: BP 107/66
[2022-02-26] MEDS: DULOXETINE HCL 30 MG CAPSULE.DR PO SCH (08:48)
[2022-02-26] MEDS: ASPIRIN EC 81 MG TABLET.DR PO SCH (08:48)
[2022-02-26] MEDS: DONEPEZIL 5 MG TABLET PO SCH (08:48)
[2022-02-26] MEDS: FUROSEMIDE 40 MG/4 ML VIAL IV SCH (08:48)
[2022-02-26] MEDS: PANTOPRAZOLE 40 MG TABLET.DR PO SCH (08:48)
[2022-02-26] MEDS: AMLODIPINE BESYLATE 10 MG TABLET PO SCH (09:00)
[2022-02-26] MEDS: METOPROLOL SUCCINATE 25 MG TAB.SR.24H PO SCH (09:13)
[2022-02-26] MEDS: TOLTERODINE 2 MG CAP.SR PO SCH (09:22)
[2022-02-26] MEDS ORDERED: FUROSEMIDE 40 MG TABLET PO SCH (10:00)
[2022-02-26 16:00] VITALS: BP 110/58
[2022-02-26] MEDS ORDERED: FURO-144 PO (16:19)
[2022-02-26] MEDS ORDERED: LEVO250T59 PO (16:19)
--- NOTE | 2022-02-26 16:50 | NUR ---
RN NOTE PT ON ROOM AIR, TOLERATING WELL. NO SIGNS OF RESPIRATORY DISTRESS. NO SOB REPORTED.
--- NOTE | 2022-02-26 17:24 | NUR ---
RN NOTE CALLED AND GAVE REPORT TO KAELA THE JOINERY MACHINIST OF FACILITY WHERE PATIENT WILL BE TRANSFERRED TO, WHERE SHE RESIDES. SPOKE TO GRAND DAUGHTER DEEP WHO WAS INFORMED ABOUT THE STATUS OF PATIENT AND TRANSFER.
[2022-02-26] MEDS: ATORVASTATIN 10 MG TABLET PO SCH (18:14)
--- NOTE | 2022-02-26 18:24 | NUR ---
RN NOTE RIVERA CATHETER REMOVED WITHOUT A PROBLEM NOR RESISTANCE. NO SIGNS OF HEMATURIA, NO COMPLAINTS OF PAIN FROM THE PATIENT. 500ML CLEAR YELLOW URINE OUTPUT IN BAG.
--- NOTE | 2022-02-26 18:58 | NUR ---
TUG BOAT ENGINEER CLOSING NOTE PATIENT IN BED AWAKE, A/O X1, VERBALLY RESPONSIVE, CHINESE SPEAKER.CONFUSED . REORIENT THE PATIENT . ON ROOM AIR CURRENTLY NO SOB NOTED, BREATHING EVEN AND UNLABORED. NOTED WITH IV ACCESS ON RIGHT FOREARM #20G, INTACT AND PATENT SALINE LOCKED. NO S/SX OF PAIN OR DISCOMFORT AT THIS TIME.RIVERA REMOVED WITHOUT ANY PAIN OR RESISTANCE. NO CARDIAC DISTRESS NOTED. DUE MEDS GIVEN ORDERED. ALL SAFETY MEASURE IN PLACE. BED IN LOWEST AND LOCKED POSITION, SIDE RAILS UP X2, CALL LIGHT AND TABLE PLACED WITHIN EASY REACH. WILL ENDORSE FOR SUSY TO OPERATIONS REPRESENTATIVE NURSE WHILE WAITING FOR DISCHARGE.
--- NOTE | 2022-02-26 19:40 | NUR ---
COMPUTATIONAL CHEMISTWAREHOUSE TECHNICIAN NOTE PT DISCHARGED TO [facility] AT THIS TIME. PT IS MEDICALLY STABLE AND CLEARED FOR DISCHARGE BY CARLOZ MOYA. ALL PT CARE, NEEDS, MEDICATIONS, AND TREATMENT ADMINISTERED ANTICIPATED PER ORDER. DISCHARGE INSTRUCTIONS PROVIDED TO PT. KEPT CLEAN AND DRY. BELONGINGS ACCOUNTED FOR. IV ACCESS REMOVED, PRESSURE APPLIED, AND SECURED WITH GAUZE AND TAPE. NO SIGNS OF BLEEDING NOTED. ID BAND REMOVED. EXTERNAL ASSISTANT PRESS OPERATOR OFFSET REMOVED. PT TRANSPORTED TO [facility] WITH 2 WELDER/FITTER FROM [facility]. CHARGE NURSE BHARGAVI POLANCO.
[2022-03-02 10:07] LABS: *SPE A/G RATIO 0.6 (0.7-1.7); *SPE ALPHA-1-GLOBULIN 0.4 g/dL (0.0-0.4); *SPE ALPHA-2-GLOBULIN 1.2 g/dL (0.4-1.0); *SPE BETA GLOBULIN 1.4 g/dL (0.7-1.3); *SPE M-SPIKE Not Observed g/dL (Not Observed)
== END 2022-02-26 19:40 | DRG 177 ==
LOC: ER 19:35 → TELE 23:38
PROVIDERS: ADMIT Registered Nurse; ATTEND Nurse Practitioner Family
DX: J15.6 Pneumonia due to other Gram-negative bacteria (principal); I50.33 Acute on chronic diastolic (congestive) heart failure; J96.01 Acute respiratory failure with hypoxia; I11.0 Hypertensive heart disease with heart failure; F03.90 Unspecified dementia, unspecified severity, without behavioral disturbance, psychotic disturbance, mood disturbance, and anxiety; I70.0 Atherosclerosis of aorta; Z79.82 Long term (current) use of aspirin; Z79.899 Other long term (current) drug therapy; K21.9 Gastro-esophageal reflux disease without esophagitis; Z88.1 Allergy status to other antibiotic agents; Z88.5 Allergy status to narcotic agent; R79.89 Other specified abnormal findings of blood chemistry
CPT/HCPCS: 36415; 71045-TC; 80048-TC; 80053-TC; 80076-TC; 81001; 83735-TC; 83880; 84100-TC; 84155; 84165; 84439-TC; 84443-TC; 84484-TC; 85025-TC; 87040-TC; 87081-TC; 93307-TC; A4216; C9803; G0378; J1650; J1940; J1956; J7050